=== PATIENT | male | born 1955 | race Caucasian/White ===

== ENCOUNTER 2019-02-23 09:55 | Day surgery (SDC) | payer OTHER ==
[~2019-02-23] VITALS: Ht 180.3 cm; Wt 111.7 kg
[~2019-02-23 09:55] MED LIST: FISH OIL 1,0001 EAC1 PO; LEVFLO500 PO; METR500 PO
--- NOTE | 2019-02-23 11:16 | NUR ---
02/23/19 1116 Dalia Stanley FIRST IV UNSUCCESS IN R HAND SECOND IV UNSUCCESS IN R WRIST THIRD IV SUCCESS IN R AC
--- NOTE | 2019-02-23 12:56 | NUR ---
02/23/19 1257 Danyelle Boswell INJECTED BY TECH INTO BX PORT PER DR HEBERT
== END 2019-02-23 13:49 | disposition home or self-care (01) ==
LOC: ORSCSDS 09:55
PROVIDERS: Internal Medicine Gastroenterology
PROC: 0DBN8ZX Excision of Sigmoid Colon, Via Natural or Artificial Opening Endoscopic, Diagnostic (ICD-10-PCS; principal; 2019-02-23 12:00)
PROC: 0DBK8ZX Excision of Ascending Colon, Via Natural or Artificial Opening Endoscopic, Diagnostic (ICD-10-PCS; principal; 2019-02-23 12:00)
PROC: 0DBM8ZX Excision of Descending Colon, Via Natural or Artificial Opening Endoscopic, Diagnostic (ICD-10-PCS; principal; 2019-02-23 12:00)
PROC: 0DBL8ZX Excision of Transverse Colon, Via Natural or Artificial Opening Endoscopic, Diagnostic (ICD-10-PCS; principal; 2019-02-23 12:00)
DX: Z12.11 Encounter for screening for malignant neoplasm of colon (principal); D12.2 Benign neoplasm of ascending colon; D12.3 Benign neoplasm of transverse colon; D12.4 Benign neoplasm of descending colon; K63.5 Polyp of colon; K57.30 Diverticulosis of large intestine without perforation or abscess without bleeding; K64.8 Other hemorrhoids
CPT/HCPCS: 88305; J2704; J7040; J7120

== ENCOUNTER 2019-04-21 15:47 | Emergency (ER) | payer OTHER ==
[~2019-04-21] VITALS: Ht 180.3 cm; Wt 113.4 kg
[2019-04-21] MEDS ORDERED: ERYT1OIN RIGHTEYE (17:04)
[2019-04-21 17:43] LABS: U Amphetamine Screen Not Detected; U Barbituate Screen Not Detected; U Benzodiazapine Screen Not Detected; U Buprenorphine Screen Not Detected; U Cannabinoids Screen Not Detected; U Cocaine Screen Not Detected; U Methadone Screen Not Detected; U Methamphetamine Screen Not Detected; U Opiates Screen Not Detected; U Oxycodone Screen Not Detected; U Phencyclidine Screen Not Detected; U Propoxyphene Screen Not Detected
== END 2019-04-21 17:50 | disposition home or self-care (01) ==
LOC: ER 15:47
PROVIDERS: Physician Assistant
DX: S05.01XA Injury of conjunctiva and corneal abrasion without foreign body, right eye, initial encounter (principal); W22.8XXA Striking against or struck by other objects, initial encounter; Z79.899 Other long term (current) drug therapy
CPT/HCPCS: 99283; J7030

== ENCOUNTER 2019-04-28 17:39 | Emergency (ER) | payer OTHER ==
[~2019-04-28] VITALS: Ht 180.3 cm; Wt 113.4 kg
[~2019-04-28 17:39] MED LIST changes: +ERYT1OIN RIGHTEYE
[2019-04-28] MEDS ORDERED: KETO10 PO (18:13)
[2019-04-28] MEDS ORDERED: Polymyxin B-Tmp10 ML RIGHTEYE (18:13)
== END 2019-04-28 18:18 | disposition home or self-care (01) ==
LOC: ER 17:39
DX: H10.9 Unspecified conjunctivitis (principal); Z79.899 Other long term (current) drug therapy; Z87.891 Personal history of nicotine dependence
CPT/HCPCS: 99282

== ENCOUNTER → 2019-07-18 | Outpatient (CLI) | payer OTHER ==
[~2019-07-18] MED LIST changes: +KETO10 PO; +Polymyxin B-Tmp10 ML RIGHTEYE
[2019-07-18 14:11] LABS: BASOPHILS ABSOLUTE AUTO 0.01 K/mm3 (0.00-0.23); BASOPHILS PERCENT AUTO 0 % (0-2); EOSINOPHILS ABSOLUTE AUTO 0.08 K/mm3 (0.00-0.68); EOSINOPHILS PERCENT AUTO 1 % (0-6); Hemoglobin 15.8 g/dL (13.5-17.5); IMMATURE GRAN ABSOLUTE AUTO 0.03 K/mm3 (0.00-0.10); IMMATURE GRAN PERCENT AUTO 0 % (0-1); LYMPHOCYTES ABSOLUTE AUTO 2.82 K/mm3 (0.84-5.20); LYMPHOCYTES PERCENT AUTO 40 % (21-46); MONOCYTES ABSOLUTE AUTO 0.64 K/mm3 (0.16-1.47); MONOCYTES PERCENT AUTO 9 % (4-13); Mean Corpuscular HGB 32.5 pg (26.0-34.0); Mean Corpuscular HGB Conc 34.3 g/dL (31.5-36.5); Mean Corpuscular Volume 95 fL (80-100); Mean Platelet Volume 10.4 fL (9.1-12.4); NEUTROPHILS ABSOLUTE AUTO 3.41 K/mm3 (1.96-9.15); NEUTROPHILS PERCENT AUTO 49 % (41-73); Platelet Count 186 K/mm3 (150-400); RDW Coefficient Variation 12.4 % (11.7-14.2); RDW Standard Deviation 43.3 fL (35.1-46.3); Red Blood Cell Count 4.86 M/mm3 (4.30-5.90); White Blood Cell Count 6.99 K/mm3 (4.00-11.30)
[2019-07-18 14:28] LABS: Alanine Aminotransfer (ALT/SGP 37 U/L (12-78); Albumin/Globulin Ratio 1.1 (0.8-1.8); Alk Phos 88 U/L (40-126); Anion Gap 7 mmol/L (6-16); Aspartate Aminotrans (AST/SGOT 25 U/L (12-37); Bilirubin, Total 0.6 mg/dL (0.1-1.0); Blood Urea Nitrogen 23 mg/dL (8-24); Bun/Creatinine Ratio 24.2 (12.0-20.0); CO2, Blood 28 mmol/L (21-32); Calcium, Blood 8.8 mg/dL (8.5-10.1); Chloride, Blood 104 mmol/L (98-108); Creatinine, Blood 0.95 mg/dL (0.60-1.20); Globulin, Blood 3.6 g/dL (2.2-4.0); Glomerular Filtration Rate >60 (60-); Glucose, Blood 85 mg/dL (70-99); Potassium, Blood 3.8 mmol/L (3.5-5.5); Sodium, Blood 139 mmol/L (136-145); Total Protein, Blood 7.6 g/dL (6.4-8.2)
[2019-07-18 14:33] LABS: Troponin I <0.017 ng/mL (0.000-0.040)
== END ==
LOC: LAB SHORT 14:07 → LAB EV 14:07
PROVIDERS: Physician Assistant
DX: R55 Syncope and collapse (principal)
CPT/HCPCS: 80053; 83880; 84484; 85025

== ENCOUNTER 2021-03-12 06:33 | Emergency (ER) | payer OTHER ==
[~2021-03-12] VITALS: Ht 172.7 cm; Wt 99.8 kg
[2021-03-12 07:38] LABS: BASOPHILS ABSOLUTE AUTO 0.02 K/mm3 (0.00-0.23); BASOPHILS PERCENT AUTO 0 % (0-2); EOSINOPHILS ABSOLUTE AUTO 0.06 K/mm3 (0.00-0.68); EOSINOPHILS PERCENT AUTO 1 % (0-6); Hematocrit 50.5 % (37.0-53.0); Hemoglobin 17.3 g/dL (13.5-17.5); IMMATURE GRAN ABSOLUTE AUTO 0.03 K/mm3 (0.00-0.10); IMMATURE GRAN PERCENT AUTO 0 % (0-1); LYMPHOCYTES ABSOLUTE AUTO 2.73 K/mm3 (0.84-5.20); LYMPHOCYTES PERCENT AUTO 40 % (21-46); MONOCYTES PERCENT AUTO 7 % (4-13); Mean Corpuscular HGB Conc 34.3 g/dL (31.5-36.5); Mean Corpuscular Volume 96 fL (80-100); Mean Platelet Volume 10.4 fL (9.1-12.4); NEUTROPHILS ABSOLUTE AUTO 3.46 K/mm3 (1.96-9.15); NEUTROPHILS PERCENT AUTO 51 % (41-73); Platelet Count 187 K/mm3 (150-400); RDW Coefficient Variation 12.4 % (11.7-14.2); RDW Standard Deviation 44.2 fL (35.1-46.3); Red Blood Cell Count 5.25 M/mm3 (4.30-5.90)
[2021-03-12 07:58] LABS: Source, Urine Clean Catch
[2021-03-12 08:01] LABS: Appearance, Urine Clear (Clear); Bilirubin, Urine Neg (Neg); Blood, Urine 2+ (Neg); Color, Urine Yellow (P-Yellow); Glucose Qualitative, Urine Neg (Neg); Ketones, Urine Neg (Neg); Leukocyte Esterase, Urine Neg (Neg); Nitrite, Urine Neg (Neg); Protein, Urine Neg (Neg); Specific Gravity, Urine 1.015 (1.003-1.022); Urobilinogen, Urine NORM (Normal); pH, Urine 6.5 (5.0-8.0)
[2021-03-12 08:10] LABS: Alanine Aminotransfer (ALT/SGP 41 U/L (12-78); Albumin, Blood 4.4 g/dL (3.4-5.0); Albumin/Globulin Ratio 1.2 (0.8-1.8); Alk Phos 87 U/L (50-136); Anion Gap 5 mmol/L (6-16); Aspartate Aminotrans (AST/SGOT 25 U/L (12-37); Bilirubin, Total 0.9 mg/dL (0.1-1.0); Blood Urea Nitrogen 21 mg/dL (8-24); CO2, Blood 31 mmol/L (21-32); Calcium, Blood 9.3 mg/dL (8.5-10.1); Chloride, Blood 103 mmol/L (98-108); Creatinine, Blood 0.84 mg/dL (0.60-1.20); Globulin, Blood 3.7 g/dL (2.2-4.0); Glomerular Filtration Rate >60 (60-); Glucose, Blood 112 mg/dL (70-99); Potassium, Blood 3.7 mmol/L (3.5-5.5); Sodium, Blood 139 mmol/L (136-145); Total Protein, Blood 8.1 g/dL (6.4-8.2)
[2021-03-12 08:22] LABS: Bacteria Not Seen /hpf; Red Blood Cells, Urine Not Seen /hpf (0-2); Squamous Epithelial Cells Rare /hpf (Few)
[2021-03-12] MEDS ORDERED: CIME400 PO (08:30)
[2021-03-12] MEDS ORDERED: ONDA4ODT MM (08:30)
== END 2021-03-12 08:48 | disposition home or self-care (01) ==
LOC: ER 06:33
PROVIDERS: Emergency Medicine
DX: R10.11 Right upper quadrant pain (principal); R11.0 Nausea
CPT/HCPCS: 76705; 80053; 81001; 83690; 85025; 96374; 99284-25; A9270; J2405; J7030

== ENCOUNTER 2022-04-19 09:47 | Inpatient (IN) | payer OTHER ==
[~2022-04-19] VITALS: Ht 180.3 cm; Wt 115.9 kg
[~2022-04-19 09:47] MED LIST changes: +CIME400 PO; +ONDA4ODT MM
[2022-04-19 10:37] LABS: BASOPHILS ABSOLUTE AUTO 0.02 K/mm3 (0.00-0.23); BASOPHILS PERCENT AUTO 0 % (0-2); EOSINOPHILS ABSOLUTE AUTO 0.05 K/mm3 (0.00-0.68); EOSINOPHILS PERCENT AUTO 1 % (0-6); Hematocrit 46.4 % (37.0-53.0); Hemoglobin 15.7 g/dL (13.5-17.5); IMMATURE GRAN ABSOLUTE AUTO 0.09 K/mm3 (0.00-0.10); IMMATURE GRAN PERCENT AUTO 2 % (0-1); LYMPHOCYTES ABSOLUTE AUTO 2.41 K/mm3 (0.84-5.20); LYMPHOCYTES PERCENT AUTO 39 % (21-46); MONOCYTES ABSOLUTE AUTO 0.46 K/mm3 (0.16-1.47); MONOCYTES PERCENT AUTO 7 % (4-13); Mean Corpuscular HGB 32.4 pg (26.0-34.0); Mean Corpuscular HGB Conc 33.8 g/dL (31.5-36.5); Mean Corpuscular Volume 96 fL (80-100); NEUTROPHILS ABSOLUTE AUTO 3.16 K/mm3 (1.96-9.15); NEUTROPHILS PERCENT AUTO 51 % (41-73); RDW Coefficient Variation 12.5 % (11.7-14.2); RDW Standard Deviation 44.1 fL (35.1-46.3); Red Blood Cell Count 4.85 M/mm3 (4.30-5.90); White Blood Cell Count 6.19 K/mm3 (4.00-11.30)
[2022-04-19 10:38] LABS: Alanine Aminotransfer (ALT/SGP 51 U/L (12-78); Albumin/Globulin Ratio 1.2 (0.8-1.8); Alk Phos 82 U/L (50-136); Anion Gap 8 mmol/L (6-16); Aspartate Aminotrans (AST/SGOT 29 U/L (12-37); Bilirubin, Total 0.9 mg/dL (0.1-1.0); Blood Urea Nitrogen 25 mg/dL (8-24); Bun/Creatinine Ratio 28.2 (12.0-20.0); CO2, Blood 29 mmol/L (21-32); Calcium, Blood 9.2 mg/dL (8.5-10.1); Chloride, Blood 104 mmol/L (98-108); Creatinine, Blood 0.89 mg/dL (0.60-1.20); Ethanol (Alcohol), Blood, Med <3 mg/dL; Globulin, Blood 3.4 g/dL (2.2-4.0); Glomerular Filtration Rate 94 (60-); Glucose, Blood 108 mg/dL (70-99); Sodium, Blood 141 mmol/L (136-145); Total Protein, Blood 7.4 g/dL (6.4-8.2)
[2022-04-19 11:00] LABS: Platelet Count 153 K/mm3 (150-400)
[2022-04-19 11:15] LABS: U Amphetamine Screen Not Detected; U Barbituate Screen Not Detected; U Benzodiazapine Screen Not Detected; U Buprenorphine Screen Not Detected; U Cannabinoids Screen Not Detected; U Cocaine Screen Not Detected; U Methadone Screen Not Detected; U Methamphetamine Screen Not Detected; U Opiates Screen Not Detected; U Oxycodone Screen Not Detected; U Phencyclidine Screen Not Detected; U Propoxyphene Screen Not Detected
--- NOTE | 2022-04-19 13:38 | NUR ---
ARRIVAL TO PCU PATIENT ARRIVED FROM ED VIA GURNEY AT 1244. PATIENT TRANSFERED TO PCU BED WITH A STAND BY ASSIST. PATIENT BASELINE IS INDEPDENT. PATIENT VITAL SIGNS STABLE. PATIENT REPORTS NO CHEST PAIN/PRESSURE. PATIENT REPORTS NO SHORTNESS OF BREATH. PATIENT REPORTS NO PAIN. PATIENT IS ALERT AND ORIENTED X4. PERRLA. PATIENT HAS NUMBNESS TO HIS RIGHT ARM AND CAN NOT FEEL SENSATION. PATIENT HAS FULL MOVEMENT OF HIS RIGHT ARM. PATIENT HAS FACIAL SYMETRY, AND NO DRIFT TO TONGUE WHEN STICKING IT OUT. PATIENT DOES NOT HAVE AN ARM DRIFT EITHER. PATIENT CAN FEEL SENSATION ON RIGHT SIDE OF FACE. PATIENT CAN SMELL AND SHRUG SHOULDERS. 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 PATIENT HAS DIFFICULTITES WITH CONNECTING ALL THE DOTS CURRENTLY AND UNDERSTANDING WHAT IS CAUSING HIS ARM WEAKNESS. THIS RN HAS PROVIDED EDUCATION TO THE PATIENT AND PATIENT SAYS "OKAY". LUNG SOUND CLEAR. ABD SOFT NONTENDER AND ACTIVE. STRONG RADIAL AND PEDIS PULSES. NO SKIN ISSUES NOTED. SEE SHIFT ASSESSMENT FOR FURTHER DETAILS. PATIENT SON AT BEDSIDE, DILAN, WHO IS AN RN. HE IS ARRANGING CARE FOR HIS DADS CAT, AND BRINGING IN ITEMS FOR HIS DAD. SON IS AWARE OF PLAN. SON IS THE PERSON WHO WOULD MAKE DECISIONS IF THE PATIENT IS UNABLE TOO, PER PATIENT. PATIENT OFF TO GET AN MRI DONE AND TRANSFED TO THE WHEELCHAIR WITH A STAND BY. PATIENT IS STABLE ON HIS FEET. PATIENT HAS GLASSES AND DENTURES. PATIENT BELONGINGS IN ROOM, SON TOOK PATIENT WORK CLOTHES HOME, SHOES AND SOCKS IN ROOM. WILL CONTINUE TO MONITOR AND PROVIDE CARE.
--- NOTE | 2022-04-19 16:53 | NUR ---
SHIFT SUMMARY PATIENT NEURO REMAINS INTACT. PATIENT STILL HAS NUMBNESS AND LOSS OF SENSATION TO RIGHT ARM. PATIENT SON BROUGHT IN NEW CLOTHES FOR THE PATIENT. PATIENT WORKED WITH PHYSICAL THERAPY TODAY AND DID WELL. PATIENT IS INDEPDENT, BUT IS IMPULSIVE, SO SOMEONE TO STAND BY FOR SAFETY. PATIENT NEEDS REMINDERS TO USE CALL LIGHT AND NOT GET UP WITHOUT HELP. Q2 NEURO CHECKS. NEURO HAS REMAINED THE SAME. NO ACUTE CHANGES THIS SHIFT. CALL LIGHT WITHIN REACH AND BED IN LOWEST POSITION. WILL CONITNUE TO MONITOR AND PROVIDE CARE UNTIL HAND OFF WITH NEXT SHIFT.
--- NOTE | 2022-04-19 21:06 | NUR ---
Assumed care 1900. VSS on RA. Tele: sinus erwin. Neuro Assessment: A&O, with moderate expressive aphasia. He has a hard time ansering some questions, but other he can answer quickly. He reports it has improved from earlier today. He states he feels a little off on the right side, especially his right upper extremity, but strengths feel equal on both side and no weakness noted in assessment. Pt reports decreased sensation on assessment on right upper extremity. Pupils equal and reactive. Coordination appears normal, pt is following commands. Education given on stroke and rehab from stroke. Pt is pretty fearful of diagnosis, but happy to have answer to why he was having symptoms. Pt seems eager to work with PT/OT/INFECTION CONTROL PRACTITIONER. Will continue to monitor.
--- NOTE | 2022-04-20 04:01 | NUR ---
Fence Setter Note: Pt is A&O, with expressive aphasia. Trouble answering orientation questions at times due to aphasia. Tried writing communication and it did not work well. Pt was able to read and identify several words/objects on assessment, trouble with others. Pt reported that he did a lot better than he had done earlier in the day. Right arm has decreased sensation compared to left. Coordination was normal when tested. Pt reports "left side still feels off compared to normal". When tested, strengths felt equal bilaterally. No drift in legs or arms. Pt has been able to get up to bathroom with supervision several times throughout the night. Q2hr neuro checks overnight. Right side sensation has improved overnight. Expressive aphasia has stayed about the same overnight. 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 VSS on RA. Education given on stroke and stroke recovery, all questions answered. Pt seems eager to get therapy to improve deficits. 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
--- NOTE | 2022-04-20 09:23 | NUR ---
CARE ASSUMPTION THIS RN ASSUMED CARE FROM YVES DAVIS AT 0700. VSS. PATIENT IS ALERT AND ORIENTED X4. NEURO IS INTACT. PATIENT HAS RIGHT SIDE LESS SENSATION. PATIENT ABLE TO FEEL A PEN CAP AND WHEN THIS RN TOUCHED HIS ARM. PATIENT STATED THE SENSATION IS IMPROVING, BUT STILL FEELS OFF. PATIENT HAS NO ARM DRIFT OR WEAKNESS. STRENGTH IS BILATERAL. PATIENT HAS EXPRESSIVE ASPHASIA THAT SEEMS TO IMPROVED SINCE YESTERDAY. PATIENT CAN IDENTIFY PICTURES AND READ THE SENTENCES FROM THE SHEET, BUT HAS DIFFICULITY SPELLING CERTAIN WORDS. THIS RN ASKED THE PATIENT TO SPELL COOKIE, AND WAS UNABLE TO. WHEN PATIENT WROTE OUT COOKIE HE SPELLED IT "COOKY". THIS RN ASKED TO SPELL RIVERA AND PATIENT WAS ABLE TO SPELL AND WRITE RIVERA CORRECTLY. PATIENT REPORTS NO PAIN. PATIENT REPORTS NO SHORTNESS OF BREATH, CLEAR LUNG SOUNDS ON RA. PATIENT REPORTS NO CHEST PAIN. TELE SINUS BRYAN BBB 55. STRONG RADAIL AND PEDIS PULSES. ABD ACTIVE NONTENDER. PATIENT HAS A SCAR ON LEFT FOREARM FROM LUMBAR ACCIDENT. SEE SHIFT ASSESSMENT FOR FURTHER DETAILS. SPEECH IN TO SEE THE PATIENT THIS AM. PATIENT CHANGED TO A REGULAR DIET. PASSED SPEECH EVAL. THIS RN WAS TALKING TO THE PATIENT THIS AM ABOUT HIS LIFE, FAMILY, AND KIDS. PATIENT DISCUSSED HIS YOUNGEST SON PASSING AWAY WHEN HE WAS [age] YEARS OLD DUE TO A HEART CONDITION. PATIENT BECAME TEARFUL AND THIS RN PROVIDED THERAPUETIC COMMUNICATION AND ACTIVE LISTENING. THIS RN PROVIDED EDUCATION ON STROKE AND REHAB. PATIENT IS SITTING IN BEDSIDE CHAIR. TAB ALARM ON. CALL LIGHT WITHIN REACH. WILL CONTINUE TO MONITOR AND PROVIDE CARE.
--- NOTE | 2022-04-20 13:45 | NUR ---
UPDATE-EDUCATION TO PATIENT ON STROKE THIS RN PRINTED OFF EDUCATION ON REHAB FROM STROKE, APHASIA, STROKE PREVENTION, AND EMOTIONAL HEALTH AFTER A STROKE. THIS RN USED THERAPEUTIC COMMUNICATION AND ACTIVE LISTENING WHEN PROVIDED THE EDUCATION. THIS RN ANSWERED ALL OF THE PATIENTS QUESTIONS. PATIENT WOULD BECOME TEARFUL AT TIMES, BUT VERABLIZED UNDERSTANDING AND LIFESTYLE CHANGES HE PLANS TO MAKE. PRINT OUTS ARE IN ROOM FOR PATIENT TO REVIEW. THIS RN ALSO EDUCATED THE FAMILY AT BEDSIDE AND THEY VERABLIZED UNDERSTANDING. FAMILY IS CURRENTLY AT BEDSIDE VISITING WITH THE PATIENT. WILL CONTINUE TO MONITOR AND PROVIDE CARE.
--- NOTE | 2022-04-20 17:11 | NUR ---
SHIFT SUMMARY PATIENT NEURO REMAINS INTACT. ASPHASIA SEEMS TO BE IMPROVING. PATIENT SENSATION IN THE RIGHT ARM HAS IMPROVED THIS SHIFT. PATIENT WORKED WITH PHYSICAL THERAPY TODAY AND SPEECH. PATIENT IS INDEPDENT, BUT IS EDUCATED TO CALL SO WE CAN BE THERE IF HE NEEDS ASSSITANCE. PATIENT USES CALL LIGHT APPROPRIATELY. PATIENT CAN MAKE HIS NEEDS KNOWNS. PATIENT HAS HAD MULTIPLE VISITORS THROUGHOUT THE DAY. NO ACUTE CHANGES THIS SHIFT. CALL LIGHT WITHIN REACH AND BED IN LOWEST POSITION. WILL CONTINUE TO MONITOR AND PROVIDE CARE UNTIL HAND OFF WITH NEXT SHIFT.
--- NOTE | 2022-04-21 05:14 | NUR ---
SHIFT SUMMARY PT ALERT AND ORIENTED X 4. Q 4 NEURO CHECKS DONE. NO ACUTE CHANGES T/O SHIFT. PT HAS EQUAL PUPILS, BRISK REACTION TO LIGHT. 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 REPORTS TINGLING IN R HAND WHICH HE STATES HAD IMPROVED SINCE YESTERDAY 04/20 DAYSHIFT. NO WEAKNESS IN BLE. HR STABLE. BP STABLE. NO CP OR PRESSURE. PT SBA. CALL LIGHT WITHIN REACH. PT SLEPT T/O NIGHT. WILL CONT TO MONITOR UNTIL REPORT GIVEN TO DAYSHIFT RN.
--- NOTE | 2022-04-21 09:23 | NUR ---
CARE ASSUMPTION THIS RN ASSUMED CARE FROM KAELA DAVIS AT 0700. VSS. TELE SINUSBRADY AT 55. PATIENT IS ALERT AND ORIENTED X4. PERRLA. PATIENT REPORTS NUMBNESS TO FINGERTIPS IN RIGHT HAND, THAT IS IMPROVING. PATIENT REPORTS SENSATION IMPROVEMENT IN RIGHT ARM. PATIENT STATED THIS AM "THAT MY BRAIN IS GETTING BETTER, BUT STILL NOT THERE". PATIENT ABLE TO SPELL CORRECTLY BOTH VERBAL AND WRITTEN THE WORDS THIS RN PROVIDED SUCH RIVERA, [place], [place], BLUE, AND HIS NAME. PATIENT ABLE TO IDENTIFY THE PICTURES PRESENTED ON THE PAPER AND READ THE WORDS CORRECTLY. PATIENT REPORTS NO PAIN. PATIENT REPORTS NO CHEST PAIN/PRESSURE. STRONG RADIAL AND PEDIS PULSES. NO EDEMA NOTED. PATIENT REPORTS NO SHORTNESS OF BREATH. CLEAR LUNG SOUNDS. PATIENT ABD ACTIVE NONTENDER. PATIENT SKIN IS INTACT, JUST GENERALIZED RED TONE TO SKIN. PATIENT HAS NO ISSUE VOIDIING. SEE SHIFT ASSESSMENT FOR FURTHER DETAILS. PATIENT PERFORMED AM CARE AND WAS ABLE TO WALK INDEPDENTLY IN THE ROOM AND DOES OWN ADLS. MD HENSON IN TO SEE PATIENT THIS MORNING AND DISCUSSED THE IMPORTANCE OF HAVING A PRIMARY CARE PROVIDER AND PATIENT STATED HE WOULD FOLLOW UP WITH THE CLINIC AND OUT PATIENT THERAPY. MD HENSON DISCUSSED POSSIBLE DISCHARGE THIS AFTERNOON. PATIENT UNDERSTANDS PLAN OF CARE. THIS RN WENT OVER STROKE EDUCATION AND PREVENTION THIS AM WITH THE PATIENT. THIS RN USED THERAPEUTIC COMMUNICATION AND ACTIVE LISTENING. PATIENT HAS NO QUESTIONS AT THIS TIME. CALL LIGHT IS WITHIN REACH AND PATIENT USES APPROPRIATELY. WILL CONTINUE TO MONITOR AND PROVIDE CARE.
[2022-04-21] MEDS ORDERED: ACET325 PO (11:05)
[2022-04-21] MEDS ORDERED: AMLO5 PO (11:05)
[2022-04-21] MEDS ORDERED: ATOR40TA PO (11:05)
[2022-04-21] MEDS ORDERED: ASPI81CH PO (11:05)
[2022-04-21] MEDS ORDERED: CLOP75 PO (11:06)
[2022-04-21] MEDS ORDERED: Prinivil10 MG PO (11:06)
[2022-04-21] MEDS ORDERED: FAMO20 PO (11:06)
--- NOTE | 2022-04-21 11:43 | NUR ---
DISCHARGE EDUCATION THIS RN WENT OVER DISCHARGE EDUCATION WITH THE PATIENT. THIS RN WENT OVER THE IMPORTANCE OF FOLLOW UP APPOINTMENT WITH [facility] WITH A PCP. PATIENT VERABLIZED UNDERSTANDING AND THAT HE WOULD FOLLOW UP. THIS RN WENT OVER THE PATIENT NEW MEDICATIONS. THIS RN WENT OVER ASPIRIN, PLAVIX, LIPITOR, NORVASC, LISINIPRIL, AND PEPCID. THIS RN EXPLAINED THE ROLE OF EACH MEDICATION AND PROVIDED PRINTED HAND OUT COPIES. PATIENT VERABLIZED UNDERSTANDING. THIS RN WENT OVER STROKE EDUCATION, PREVENTION, THE TYPE OF STROKE THE PATIENT HAD. THE PATIENT VERABLIZED UNDERSTANDING. THIS RN HAS BEEN EDUCATING THE PATIENT THROUGHOUT HIS STAY ON THESE TOPICS. ALL OF PATIENT BELONGINGS GATHERED AND IN PATIENT BAG. PATIENT CALLED FOR HIS RIDE. AWAITING FOR PATIENT RIDE. THERE HAS BEEN NO ACUTE CHANGES THIS SHIFT. PATIENT INDEPDENT IN ROOM AND CALLS IF HE NEEDS ASSISTANCE. WILL CONTINUE TO MONITOR AND PROVIDE CARE UNTIL PATIENTS RIDE ARRIVES.
--- NOTE | 2022-04-21 12:14 | NUR ---
DISCHARGE PATIENT LEFT HOSPITAL IN NO ACUTE DISTRESS. PATIENT HAD ALL BELONGINGS WITH PATIENT AND DISCHARGE EDUCATION. PATIENT LEFT AT 1207.
== END 2022-04-21 12:05 | disposition home or self-care (01) | DRG 65 ==
LOC: ER 09:47 → PCU 11:49
PROVIDERS: Student in an Organized Health Care Education/Training Program; ADMIT Internal Medicine
DX: I63.9 Cerebral infarction, unspecified (principal); I50.30 Unspecified diastolic (congestive) heart failure; G81.91 Hemiplegia, unspecified affecting right dominant side; I11.0 Hypertensive heart disease with heart failure; I08.2 Rheumatic disorders of both aortic and tricuspid valves; R47.01 Aphasia; R29.706 NIHSS score 6; I45.6 Pre-excitation syndrome; R20.0 Anesthesia of skin; Z98.890 Other specified postprocedural states; Z86.010 Personal history of colon polyps; Z79.899 Other long term (current) drug therapy; Z87.891 Personal history of nicotine dependence; Z87.19 Personal history of other diseases of the digestive system
CPT/HCPCS: 70450; 70496; 70498; 70551; 80053; 82947; 84484; 85025; 92523; 92610; 93005; 93010; 93306; 97112; 97116; 97162; 97166; 97530; 99285-25; A9270; G0480; J3101; Q9967

== ENCOUNTER 2025-02-01 12:02 | Emergency (ER) | payer OTHER ==
[~2025-02-01] VITALS: Ht 180.3 cm; Wt 111.6 kg
[~2025-02-01 12:02] MED LIST changes: +ACET325 PO; +AMLO5 PO; +ASPI81CH PO; +ATOR40TA PO; +CLOP75 PO; +FAMO20 PO; +OMEP20ER PO; +Prinivil10 MG PO
[2025-02-01 12:58] LABS: BASOPHILS ABSOLUTE AUTO 0.01 K/mm3 (0.00-0.23); BASOPHILS PERCENT AUTO 0 % (0-2); EOSINOPHILS ABSOLUTE AUTO 0.03 K/mm3 (0.00-0.68); EOSINOPHILS PERCENT AUTO 0 % (0-6); Hematocrit 49.4 % (37.0-53.0); Hemoglobin 17.3 g/dL (13.5-17.5); IMMATURE GRAN ABSOLUTE AUTO 0.02 K/mm3 (0.00-0.10); IMMATURE GRAN PERCENT AUTO 0 % (0-1); LYMPHOCYTES PERCENT AUTO 43 % (21-46); MONOCYTES ABSOLUTE AUTO 0.48 K/mm3 (0.16-1.47); MONOCYTES PERCENT AUTO 7 % (4-13); Mean Corpuscular HGB 33.1 pg (26.0-34.0); Mean Corpuscular Volume 95 fL (80-100); Mean Platelet Volume 11.1 fL (9.1-12.4); NEUTROPHILS ABSOLUTE AUTO 3.48 K/mm3 (1.96-9.15); NEUTROPHILS PERCENT AUTO 50 % (41-73); Platelet Count 181 K/mm3 (150-400); RDW Coefficient Variation 12.2 % (11.7-14.2); RDW Standard Deviation 42.6 fL (35.1-46.3); Red Blood Cell Count 5.23 M/mm3 (4.30-5.90); White Blood Cell Count 7.02 K/mm3 (4.00-11.30)
[2025-02-01 13:30] LABS: Albumin/Globulin Ratio 1.3 (0.8-1.8); Bun/Creatinine Ratio 21.4 (12.0-20.0); Creatinine, Blood 0.89 mg/dL (0.60-1.20); Globulin, Blood 3.1 g/dL (2.2-4.0); Potassium, Blood 4.2 mmol/L (3.5-5.5); Total Protein, Blood 7.1 g/dL (6.4-8.2)
[2025-02-01 15:20] LABS: Free Thyroxine 0.72 ng/dL (0.70-1.60); Thyroid Stimulating Hormone 0.947 uIU/mL (0.360-4.800)
[2025-02-01 16:04] LABS: Source, Urine Clean Catch
[2025-02-01 16:19] LABS: Appearance, Urine Clear (Clear); Bilirubin, Urine Neg (Neg); Blood, Urine Neg (Neg); Color, Urine Yellow (P-Yellow); Glucose Qualitative, Urine Neg (Neg); Ketones, Urine Neg (Neg); Leukocyte Esterase, Urine Neg (Neg); Nitrite, Urine Neg (Neg); Protein, Urine Neg (Neg); Urobilinogen, Urine NORM (Normal)
[2025-02-01 17:10] VITALS: BP 132/71
== END 2025-02-01 17:10 | disposition home or self-care (01) ==
LOC: ER 12:02
PROVIDERS: Student in an Organized Health Care Education/Training Program
DX: R42 Dizziness and giddiness (principal); R51.9 Headache, unspecified; Z59.89 Other problems related to housing and economic circumstances; Z87.891 Personal history of nicotine dependence; Z79.899 Other long term (current) drug therapy; Z79.02 Long term (current) use of antithrombotics/antiplatelets
CPT/HCPCS: 70450; 71046; 80053; 81003; 83735; 83880; 84439; 84443; 84484; 85025; 93005; 93010; 99284-25